=== PATIENT | female | born 1985 | race Caucasian/White ===

== ENCOUNTER 2020-06-14 13:44 | Outpatient (CLI) | payer BC, SELFPAY | END 2020-06-14 13:45 | disposition home or self-care (01) | LOC: ANHCOVIDVC 13:44 | PROVIDERS: PCP Obstetrics & Gynecology | DX: Z23 Encounter for immunization (principal) | CPT/HCPCS: 0001A; 91300 ==

== ENCOUNTER 2020-07-05 13:38 | Outpatient (CLI) | payer BC, SELFPAY | END 2020-07-05 13:39 | disposition home or self-care (01) | LOC: ANHCOVIDVC 13:38 | PROVIDERS: PCP Obstetrics & Gynecology | DX: Z23 Encounter for immunization (principal) | CPT/HCPCS: 0002A; 91300 ==

== ENCOUNTER 2022-08-28 09:19 | Outpatient (CLI) | payer BC, SELFPAY ==
[2022-08-28 11:18] LABS: Cholesterol 206 mg/dL (0-200); HDL Direct 87 mg/dL; Triglycerides 95 mg/dL (<150)
[2022-08-28 11:30] LABS: LDL Cholesterol Direct 90 mg/dL
[2022-08-28 11:49] LABS: Total Triiodothyronine (T3) 1.38 NG/ML (0.97-1.69)
== END 2022-08-28 09:20 | disposition home or self-care (01) ==
LOC: ANHLAB 09:21
PROVIDERS: PCP Family Medicine; Visit Provider Family Medicine
DX: E03.9 Hypothyroidism, unspecified (principal); Z13.220 Encounter for screening for lipoid disorders
CPT/HCPCS: 36415; 80061; 84439; 84443; 84480

== ENCOUNTER 2023-09-15 12:43 | Emergency (ER) | payer OTHER, BC, SELFPAY ==
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
[2023-09-15 13:00] VITALS: BP 123/79; PULSE 87; RESP 16; TEMP 36.6; O2SAT 100
== END 2023-09-15 13:16 | disposition home or self-care (01) ==
PROVIDERS: Emergency Provider Nurse Practitioner; PCP Family Medicine
DX: S29.012A Strain of muscle and tendon of back wall of thorax, initial encounter (principal); V49.40XA Driver injured in collision with unspecified motor vehicles in traffic accident, initial encounter; Z87.891 Personal history of nicotine dependence; G35 Multiple sclerosis
CPT/HCPCS: 99213; G0463

== ENCOUNTER 2023-09-17 09:41 | Outpatient (CLI) | payer BC, SELFPAY ==
[2023-09-17 10:58] LABS: Total Triiodothyronine (T3) 1.06 NG/ML (0.97-1.69)
[2023-09-17 11:00] LABS: Free T4 Free Thyroxine 0.87 ng/mL (0.78-2.19)
[2023-09-21 18:33] LABS: Thyroid Peroxidase Antibodies <1 IU/mL (<9)
== END 2023-09-17 09:42 | disposition home or self-care (01) ==
LOC: ANHLAB 09:43
PROVIDERS: PCP Family Medicine; Visit Provider Family Medicine
DX: E07.9 Disorder of thyroid, unspecified (principal); R63.5 Abnormal weight gain; Z83.49 Family history of other endocrine, nutritional and metabolic diseases
CPT/HCPCS: 36415; 84439; 84443; 84480; 86376